=== PATIENT | female | born 1970 | race Hispanic/Latino ===

== ENCOUNTER 2017-09-27 10:06 | Observation (INO) | payer BC ==
[2017-09-27 10:37] VITALS: BMI 19.4
--- NOTE | 2017-09-27 11:54 | ED PDOC ---
Syncope/Near Syncope/Dizziness Time Seen by Provider: 09/27/17 11:00 Chief Complaint (Nursing): Syncope Chief Complaint (Provider): Syncope History Per: Patient, Family History/Exam Limitations: no limitations Onset/Duration Of Symptoms: Hrs Associated Symptoms Preceding Syncopal Episode: denies: Lightheadedness, Worse With Standing, Vertigo Additional Complaint(s): 47 y/o F with PMHx of Mitral valve prolapse presents to ED complaining of one syncope episode that happened today morning between 7-7:30 am. Patient has been on gluten-free diet for several years and lately has been on dairy-free. Patient states she was kneeling down praying in her bedroom, felt intense diffuse abdominal cramps, associated with nausea, and passed out for about 15- 20 mins. During the event she felt on her left side, hit her right side of her face, shoulder, and knee. When she regained consciousness she was oriented, feeling weak ( mainly in her upper extremities), still nauseous, and noticed she had lost the control of her bladder. Her sister, who was in a different room , saw her sitting on the floor, and conscious. Patient denies dizziness, palpitations, chest pain, SOB,diarrheas, urinary symptoms or other complains prior to the event. As per patient's sister patient was oriented, asked her for any symptoms, but patient denies any cp, palpitations, headaches, dizziness, tongue bit, o other complains. Denies h/o seizures. PMD: None at this time Past Medical History Vital Signs: Last Vital Signs Temp 98 F 09/27/17 10:37 Pulse 64 09/27/17 10:49 Resp 18 09/27/17 10:49 BP 125/77 09/27/17 10:49 Pulse Ox 100 09/27/17 10:49 - Medical History Other PMH: Mitral valve prolapse - Family History Family History: States: Unknown Family Hx - Social History Current smoker - smoking cessation education provided: No Ex-Smoker (has not smoked in the last 12 months): No Alcohol: None Drugs: Denies - Home Medications Home Medications: Ambulatory Orders Medication Instructions Recorded No Known Home Med 09/27/17 - Allergies Allergies/Adverse Reactions: Allergies Allergy/AdvReac Type Severity Reaction Status Date / Time Crustacians Allergy DIZZINESS Uncoded 09/27/17 11:00 Review of Systems ROS Statement: Except As Marked, All Systems Reviewed And Found Negative (as per HPI) Physical Exam - Reviewed Nursing Documentation Reviewed: Yes Vital Signs Reviewed: Yes - Physical Exam Appears: Positive for: Non-toxic, No Acute Distress Skin: Positive for: Normal Color, Warm, Dry Eye Exam: Positive for: EOMI, PERRL. Negative for: Conjunctival injection, Scleral icterus ENT: Positive for: Other (Noted ecchymosis in right eyebrow, upper lip) Neck: Positive for: Normal, Supple Cardiovascular/Chest: Positive for: Regular Rate, Rhythm, Bradycardia. Negative for: Chest Non Tender, Edema, Gallop, Murmur, Tachycardia, Irregularly Irregular Respiratory: Positive for: Normal Breath Sounds. Negative for: Decreased Breath Sounds, Accessory Muscle Use, Crackles, Rales, Rhonchi, Wheezing, Respiratory Distress Gastrointestinal/Abdominal: Positive for: Bowel Sounds (present), Soft. Negative for: Tenderness, Distended, Guarding, Rebound Back: Positive for: Normal Inspection. Negative for: L CVA Tenderness, R CVA Tenderness Neurologic/Psych: Positive for: Alert, Oriented - Laboratory Results Result Diagrams: 09/27/17 12:35 09/27/17 12:35 - ECG O2 Sat by Pulse Oximetry: 100 Medical Decision Making Medical Decision Making: Syncope -EKG: NSR -CBC, CMP, PT/PTT, LDH, CPK -UA -Head CT scan w/o contrast -Maxillofacial CT scan w/o contrast -Orthostatic BP at bedside negative. Lying : 100/60, Sittin/[address] Odom Re-evaluation -CBC, CMP, coag panel WNL UA unremarkable -Head CT reported as no evidence of intracraneal bleeding -Maxillofacial Ct scan reported as no evidence of fracture Discussed with Dr. Odom, patient will be admitted under Dr. Villafana service to r/ o seizure Noted that Dr. Bertrand was patient's PCP in the past, but patient does not want to be admitted under Dr. Bertrand's service, but she agrees with the admission. Spoke with , and agreed with admission under his service. Dr. Villafana asked to call Cardiology ( Dr. Tapia), and Neurology ( ) for evaluation. Dr. Tapia was consulted, and recommended Echo eval. Dr. Quarles was called, but asked to call Dr. Mendoza, who is electrician substation. Dr. Mendoza was consulted, and recommended CTA head and neck. Disposition - Clinical Impression Clinical Impression: Syncope - Patient ED Disposition Is Patient to be Admitted: Yes Discussed With : Kaylynn Odom - Disposition Disposition Time: 17:11 Condition: FAIR
[2017-09-27 12:42] LABS: BASO % 0.1 % (0.0-2.0); EOS % 0.1 % (0.0-4.0); HEMOGLOBIN 13.6 g/dL (12.0-16.0); LYMPH # 0.5 K/uL (1.0-4.3); LYMPH % 7.4 % (20.0-40.0); MEAN CELL VOLUME 94.9 fl (81.0-99.0); MEAN CORPUSCULAR HEMOGLOBIN 32.3 pg (27.0-31.0); MEAN CORPUSCULAR HGB CONC 34.1 g/dL (33.0-37.0); MEAN PLATELET VOLUME 8.8 fl (7.2-11.7); MONO # 0.4 K/uL (0.0-0.8); NEUT # 6.2 K/uL (1.8-7.0); NEUT % 87.4 % (50.0-75.0); PLATELET COUNT 141 K/uL (130-400); RBC 4.22 Mil/uL (3.80-5.20); WHITE BLOOD COUNT 7.1 K/uL (4.8-10.8)
[2017-09-27 12:47] LABS: URINE BILIRUBIN NEGATIVE (NEGATIVE); URINE BLOOD NEGATIVE (NEGATIVE); URINE CALCIUM OXALATE CRYSTALS OCC /hpf (<OCC); URINE CLARITY SLIGHTY-CLOUDY (Clear); URINE COLOR YELLOW (YELLOW); URINE GLUCOSE (UA) NEG (Normal); URINE LEUKOCYTE ESTERASE NEG Leu/uL (Negative); URINE PROTEIN 30 mg/dL (NEGATIVE); URINE UROBILINOGEN 0.2-1.0 mg/dL (0.2-1.0)
[2017-09-27 12:51] LABS: ALB/GLOB RATIO 1.5 (1.0-2.1); ALBUMIN 4.2 g/dL (3.5-5.0); ALT/SGPT 25 U/L (9-52); AST/SGOT 25 U/L (14-36); BLOOD UREA NITROGEN 14 mg/dl (7-17); CALCIUM 9.5 mg/dL (8.4-10.2); GFR AFRICAN-AMERICAN > 60; GFR NON-AFRICAN AMERICAN > 60
[2017-09-27 13:08] LABS: INR 1.1 (0.9-1.2); PARTIAL THROMBOPLASTIN TIME 28.3 Seconds (25.6-37.1); PROTHROMBIN TIME 11.9 Seconds (9.8-13.1)
[2017-09-27 13:16] LABS: LYMPHOCYTE 9 % (20-50); MONOCYTE 6 % (0-10); NEUTROPHIL 85 % (42-75); PLATELET ESTIMATE SLIGHTLY DECREASED (NORMAL); TOTAL CELLS COUNTED 100
[2017-09-27 13:17] LABS: ANISOCYTOSIS SLIGHT; LARGE PLATELETS PRESENT; OVALOCYTES MODERATE; TEARDROP CELLS SLIGHT
--- NOTE | 2017-09-27 13:17 | CT ---
PROCEDURE: CT HEAD WITHOUT CONTRAST. HISTORY: Syncope with facial trauma COMPARISON: None available. TECHNIQUE: Axial computed tomography images were obtained through the head/brain without intravenous contrast. Coronal and sagittal reconstructed images. Radiation dose: Total exam DLP = 853.69 mGy-cm. This CT exam was performed using one or more of the following dose reduction techniques: Automated exposure control, adjustment of the mA and/or kV according to patient size, and/or use of iterative reconstruction technique. FINDINGS: HEMORRHAGE: No intracranial hemorrhage. BRAIN: No mass effect or edema. No atrophy or chronic microvascular ischemic changes. VENTRICLES: Unremarkable. No hydrocephalus. CALVARIUM: Unremarkable. PARANASAL SINUSES: Unremarkable as visualized. No significant inflammatory changes. MASTOID AIR CELLS: Unremarkable as visualized. No inflammatory changes. OTHER FINDINGS: None. IMPRESSION: No acute intracranial abnormalities. No significant findings to account for the clinical presentation.
--- NOTE | 2017-09-27 13:21 | CT ---
PROCEDURE: CT MAXILLOFACIAL BONES WITHOUT CONTRAST HISTORY: s/p syncope and fall COMPARISON: None TECHNIQUE: Contiguous axial CT images of the maxillofacial bones were obtained. Coronal and sagittal reformats were generated. Radiation dose: Total exam DLP = 740.27 mGy-cm. This CT exam was performed using one or more of the following dose reduction techniques: Automated exposure control, adjustment of the mA and/or kV according to patient size, and/or use of iterative reconstruction technique. FINDINGS: NASAL BONES: No evidence of nasal bone fracture. There is soft tissue swelling about the nose. ORBITS: Unremarkable. PARANASAL SINUSES/ MASTOIDS: Clear. MAXILLA: Unremarkable. MANDIBLE/ TEMPOROMANDIBULAR JOINTS: Unremarkable. SKULL BASE: Unremarkable. TEMPORAL BONES: Middle ears and mastoid grossly unremarkable. OTHER FINDINGS: None. IMPRESSION: Nasal soft tissue swelling without nasal bone fracture or other pathologic process.
--- NOTE | 2017-09-28 11:10 | CARD ---
APPROVED REPORT EKG Measurement Heart [id number] <Conclusion> Sinus bradycardia with sinus arrhythmia Possible Left atrial enlargement Borderline ECG
--- NOTE | 2017-09-28 11:28 | CARD ---
APPROVED REPORT EXAM: Two-dimensional and M-mode echocardiogram with Doppler and color Doppler. Other Information Quality : GoodRhythm : INDICATION Syncope 2D DIMENSIONS IVSd0.65 (0.7-1.1cm)LVDd4.56 (3.9-5.9cm) LVOT Diameter1.76 (1.8-2.4cm)PWd0.69 (0.7-1.1cm) IVSs0.69 (0.8-1.2cm)LVDs3.80 (2.5-4.0cm) FS (%) 16.6 %PWs0.77 (0.8-1.2cm) M-Mode DIMENSIONS Left Atrium (MM)3.54 (2.5-4.0cm)IVSd0.69 (0.7-1.1cm) Aortic Root3.23 (2.2-3.7cm)LVDd4.54 (4.0-5.6cm) Aortic Cusp Exc.1.89 (1.5-2.0cm)PWd0.66 (0.7-1.1cm) IVSs0.90 cmFS (%) 38 % LVDs2.80 (2.0-3.8cm)PWs0.87 cm Mitral Valve MV E Dldtlxhu02.0cm/sMV DECEL [id number] A Wtnswnwe77.7cm/s MV TDC97egL/A ratio2.5MVA (PHT)2.95cm2 TDI Lateral E' Peak V12.14cm/sMedial E' Peak V14.50cm/sE/Lateral E'7.1 E/Medial E'5.9 Pulmonary Valve PV Peak Rgxkpxbt91.5cm/s Tricuspid Valve TR Peak Kjfvfril527kv/sRAP TUSNJQCY22doSlVK Peak Gr.21mmHg HYYZ22yoMg LEFT VENTRICLE The left ventricle is normal size. The left ventricular function is normal. The left ventricular ejection fraction is within the normal range. The Ejection Fraction is 55-60%. There is normal LV segmental wall motion. The left ventricular diastolic function is normal. RIGHT VENTRICLE The right ventricle is normal size. The right ventricular systolic function is normal. ATRIA The left atrium size is normal. The right atrium size is normal. AORTIC VALVE The aortic valve is normal in structure. No aortic regurgitation is present. There is no aortic valvular stenosis. MITRAL VALVE The mitral valve is normal in structure. There is no mitral valve stenosis. There is no mitral valve regurgitation noted. TRICUSPID VALVE The tricuspid valve is normal in structure. There is no tricuspid valve regurgitation noted. PULMONIC VALVE The pulmonary valve is normal in structure. There is no pulmonic valvular regurgitation. GREAT VESSELS The aortic root is normal in size. The IVC is normal in size and collapses >50% with inspiration. PERICARDIAL EFFUSION The pericardium appears normal. <Conclusion> The left ventricle is normal size. The left ventricular function is normal. The left ventricular ejection fraction is within the normal range. The Ejection Fraction is 55-60%.
--- NOTE | 2017-09-28 12:13 | CP.PCM.HP ---
History of Present Illness - History of Present Illness History of Present Illness: Patient seen and examined at bedside with Dr. Villafana 47 yr old F presented to ED with complaint of syncopal episode which occurred in her home. PMHx includes Mitral Valve Prolapse. The episode was unwitnessed but patients' sister was in the home at the time. Patient reports she was in her bedroom when she suddenly felt severe abdominal cramps and passed out right after, hit the floor on her right face, shoulder and knee . Associated symptoms were nausea and lightheadedness. Reports being unconscious for 15 min. Positive for urinary incontinence. Negative for tongue biting, confusion, vomiting, headache or visual changes. Patient reports her sister found her sitting on the floor and conscious. Denies history of seizures, fevers/chills/SOB/weakness prior to the episode. PMD: none PMHx: Mitral Valve Prolapse SurgHx: bilateral bunionectomy, left ovarian cyst removed FMHx: noncontributory SocHx: denies tobacco/Etoh or drugs Medications: none Allergies: NKDA ED course: vital signs stable -EKG: Sinus bradycardia with sinus arrhythmia at 58 bpm, possible left atrial enlargement -CT head: No acute intracranial hemorrhage or abnormalities -Maxillofacial CT: Nasal soft tissue swelling without nasal bone fracture or other pathologic process -CBC, CMP, coags, and urinalysis within normal limits -Neurology and Cardiology consult placed Present on Admission - Present on Admission Any Indicators Present on Admission: No History of DVT/PE: No History of Uncontrolled Diabetes: No Urinary Catheter: No Decubitus Ulcer Present: No History Surgical Site Infection Following: None Review of Systems - Constitutional Constitutional: absent: Chills, Weakness - EENT Eyes: absent: Change in Vision Ears: absent: Dizziness Nose/Mouth/Throat: absent: Sore Throat - Cardiovascular Cardiovascular: Syncope. absent: Chest Pain, Dyspnea, Palpitations - Respiratory Respiratory: absent: Cough, Dyspnea, Hemoptysis - Gastrointestinal Gastrointestinal: Nausea. absent: Diarrhea, Vomiting - Genitourinary Genitourinary: absent: Difficulty Urinating, Dysuria - Musculoskeletal Musculoskeletal: absent: Arthralgias - Integumentary Integumentary: absent: Wounds - Neurological Neurological: absent: Focal Weakness, Loss of Vision - Psychiatric Psychiatric: absent: Anxiety - Endocrine Endocrine: absent: Polydipsia, Polyphagia, Polyuria - Hematologic/Lymphatic Hematologic: absent: Easy Bleeding, Easy Bruising Past Patient History - Past Social History Smoking Status: Never Smoked - CARDIAC Hx Cardiac Disorders: Yes - MUSCULOSKELETAL/RHEUMATOLOGICAL Hx Falls: Yes - PSYCHIATRIC Hx Substance Use: No - SURGICAL HISTORY Other/Comment: Feet surgery. Cyst removed from ovary - ANESTHESIA Hx Anesthesia: Yes Hx Anesthesia Reactions: No Meds Allergies/Adverse Reactions: Allergies Allergy/AdvReac Type Severity Reaction Status Date / Time Crustacians Allergy DIZZINESS Uncoded 09/27/17 11:00 Physical Exam - Constitutional Appears: No Acute Distress - Head Exam Head Exam: absent: ATRAUMATIC (bruise and minimal swelling of right lateral upper/lower eyelid, bruise and minimal swelling of right upper lip) - Eye Exam Eye Exam: EOMI, PERRL - ENT Exam ENT Exam: Mucous Membranes Moist - Neck Exam Neck exam: Positive for: Full Rom. Negative for: Lymphadenopathy - Respiratory Exam Respiratory Exam: Clear to Auscultation Bilateral, NORMAL BREATHING PATTERN - Cardiovascular Exam Cardiovascular Exam: REGULAR RHYTHM, +S1, +S2 - GI/Abdominal Exam GI & Abdominal Exam: Normal Bowel Sounds, Soft. absent: Tenderness - Extremities Exam Extremities exam: Negative for: pedal edema - Neurological Exam Neurological exam: Alert, CN II-XII Intact (grossly intact), Oriented x3 - Psychiatric Exam Psychiatric exam: Normal Affect, Normal Mood - Skin Skin Exam: Dry, Normal Color, Warm Results - Vital Signs Recent Vital Signs: Last Vital Signs Temp 98.3 F 09/28/17 07:57 Pulse 51 L 09/28/17 09:00 Resp 18 09/28/17 07:57 BP 104/67 09/28/17 07:57 Pulse Ox 98 09/28/17 07:57 - Labs Result Diagrams: 09/27/17 12:35 09/27/17 12:35 Labs: Laboratory Results - last 24 hr 09/27/17 09/27/17 09/27/17 10:56 12:30 12:30 WBC RBC Hgb Hct MCV MCH MCHC RDW Plt Count MPV Neut % (Auto) Lymph % (Auto) Burt % (Auto) Eos % (Auto) Baso % (Auto) Neut # (Auto) Lymph # (Auto) Burt # (Auto) Eos # (Auto) Baso # (Auto) Neutrophils % (Manual) Lymphocytes % (Manual) Monocytes % (Manual) Platelet Estimate Large Platelets Anisocytosis (manual) Tear Drop Cells Ovalocytes PT 11.9 INR 1.1 APTT 28.3 Sodium Potassium Chloride Carbon Dioxide Anion Gap BUN Creatinine Est GFR ( Amer) Est GFR (Non-Af Amer) POC Glucose (mg/dL) 132 H Random Glucose Calcium Total Bilirubin AST ALT Alkaline Phosphatase Lactate Dehydrogenase 373 Total Creatine Kinase 59 Total Protein Albumin Globulin Albumin/Globulin Ratio Urine Color Urine Clarity Urine pH Ur Specific Nordman Urine Protein Urine Glucose (UA) Urine Ketones Urine Blood Urine Nitrate Urine Bilirubin Urine Urobilinogen Ur Leukocyte Esterase Urine RBC (Auto) Urine Microscopic WBC Calcium Oxalate Crystal 09/27/17 09/27/17 09/27/17 12:35 12:35 12:35 WBC 7.1 RBC 4.22 Hgb 13.6 Hct 40.0 MCV 94.9 MCH 32.3 H MCHC 34.1 RDW 13.0 Plt Count 141 MPV 8.8 Neut % (Auto) 87.4 H Lymph % (Auto) 7.4 L Burt % (Auto) 5.0 Eos % (Auto) 0.1 Baso % (Auto) 0.1 Neut # (Auto) 6.2 Lymph # (Auto) 0.5 L Burt # (Auto) 0.4 Eos # (Auto) 0.0 Baso # (Auto) 0.0 Neutrophils % (Manual) 85 H Lymphocytes % (Manual) 9 L Monocytes % (Manual) 6 Platelet Estimate Slightly decreased L Large Platelets Present Anisocytosis (manual) Slight Tear Drop Cells Slight Ovalocytes Moderate PT INR APTT Sodium 140 Potassium 3.9 Chloride 104 Carbon Dioxide 28 Anion Gap 12 BUN 14 Creatinine 0.7 Est GFR ( Amer) > 60 Est GFR (Non-Af Amer) > 60 POC Glucose (mg/dL) Random Glucose 110 H Calcium 9.5 Total Bilirubin 1.0 AST 25 ALT 25 Alkaline Phosphatase 58 Lactate Dehydrogenase Total Creatine Kinase Total Protein 7.0 Albumin 4.2 Globulin 2.8 Albumin/Globulin Ratio 1.5 Urine Color Yellow Urine Clarity Slighty-cloudy Urine pH 6.0 Ur Specific Nordman 1.024 Urine Protein 30 Urine Glucose (UA) Neg Urine Ketones 20 Urine Blood Negative Urine Nitrate Negative Urine Bilirubin Negative Urine Urobilinogen 0.2-1.0 Ur Leukocyte Esterase Neg Urine RBC (Auto) 6 H Urine Microscopic WBC 3 Calcium Oxalate Crystal Occ H Assessment & Plan - Assessment and Plan (Free Text) Assessment: 47 yr old F admitted for syncopal episode with PMHx including mitral valve prolapse Plan: -admit to telemetry -cardiac monitoring -seizure precautions -f/u HbA1c, TSH, vit B12 -Cardiology on consult, will follow recommendations -Neurology on consult, will follow recommendations -regular diet - Date & Time Date: 09/28/17 Time: 07:30
--- NOTE | 2017-09-28 14:44 | CP.PCM.CON ---
History of Present Illness - History of Present Illness History of Present Illness: Mrs. Spencer is a 47-year-old woman with a past medical history of mitral valve prolapse, who had a syncopal episode yesterday after the sudden onset of severe abdominal cramping. She was noted to have urinary incontinence. There was no fecal incontinence. There was no tongue biting, or other injury noted. She has not had any recurrent syncopal episodes since. CT scan of the head was normal. She did not want to have CTA and preferred to leave since she was feeling well. Review of Systems - Review of Systems All systems: reviewed and no additional remarkable complaints except Past Patient History - Past Social History Smoking Status: Never Smoked - CARDIAC Hx Cardiac Disorders: Yes - MUSCULOSKELETAL/RHEUMATOLOGICAL Hx Falls: Yes - PSYCHIATRIC Hx Substance Use: No - SURGICAL HISTORY Other/Comment: Feet surgery. Cyst removed from ovary - ANESTHESIA Hx Anesthesia: Yes Hx Anesthesia Reactions: No Meds Allergies/Adverse Reactions: Allergies Allergy/AdvReac Type Severity Reaction Status Date / Time Crustacians Allergy DIZZINESS Uncoded 09/27/17 11:00 Physical Exam - Constitutional Appears: Well - Eye Exam Eye Exam: EOMI, Normal appearance, PERRL - Neurological Exam Neurological exam: Alert, CN II-XII Intact, Normal Gait, Oriented x3, Reflexes Normal - Psychiatric Exam Psychiatric exam: Normal Affect, Normal Mood Results - Vital Signs Recent Vital Signs: Last Vital Signs Temp 98 F 09/28/17 12:26 Pulse 64 09/28/17 12:26 Resp 18 09/28/17 12:26 BP 101/60 09/28/17 12:26 Pulse Ox 98 09/28/17 12:26 - Labs Result Diagrams: 09/27/17 12:35 09/27/17 12:35 Labs: Laboratory Results - last 24 hr 09/27/17 10:56 POC Glucose (mg/dL) 132 H Assessment & Plan (1) Syncope Assessment and Plan: Likely vaso-vagal or neurocardiogenic syncope. Seizure is less likely, but possible. I would like the patient to have an MRI/MRA of the brain as an outpatient as well as an EEG and follow up with me in the office in 2 weeks. Thank you. Status: Acute Priority: Medium
--- NOTE | 2017-09-29 06:22 | CP.PCM.CON ---
History of Present Illness - History of Present Illness History of Present Illness: 47 year old female with hx of MVP presenting with an episode of syncope with urinary incontinence after a sever bout of cramping. Review of Systems - Review of Systems Systems not reviewed;Unavailable: Acuity of Condition - Constitutional Constitutional: As Per HPI - EENT Eyes: As Per HPI Ears: As Per HPI Nose/Mouth/Throat: As Per HPI - Breasts Breasts: As Per HPI - Cardiovascular Cardiovascular: As Per HPI - Respiratory Respiratory: As Per HPI - Gastrointestinal Gastrointestinal: As Per HPI - Genitourinary Genitourinary: As Per HPI - Reproductive: Female Reproductive:Female: As Per HPI - Menstruation Menstruation: As Per HPI - Musculoskeletal Musculoskeletal: As Per HPI - Integumentary Integumentary: As Per HPI - Neurological Neurological: As Per HPI - Psychiatric Psychiatric: As Per HPI - Endocrine Endocrine: As Per HPI - Hematologic/Lymphatic Hematologic: As Per HPI Past Patient History - Past Social History Smoking Status: Never Smoked - CARDIAC Hx Cardiac Disorders: Yes - MUSCULOSKELETAL/RHEUMATOLOGICAL Hx Falls: Yes - PSYCHIATRIC Hx Substance Use: No - SURGICAL HISTORY Other/Comment: Feet surgery. Cyst removed from ovary - ANESTHESIA Hx Anesthesia: Yes Hx Anesthesia Reactions: No Meds Allergies/Adverse Reactions: Allergies Allergy/AdvReac Type Severity Reaction Status Date / Time Crustacians Allergy DIZZINESS Uncoded 09/27/17 11:00 Physical Exam - Constitutional Appears: Well - Head Exam Head Exam: ATRAUMATIC, NORMAL INSPECTION, NORMOCEPHALIC - Eye Exam Eye Exam: EOMI, Normal appearance, PERRL Pupil Exam: NORMAL ACCOMODATION, PERRL - ENT Exam ENT Exam: Mucous Membranes Moist, Normal Exam - Neck Exam Neck exam: Positive for: Normal Inspection - Respiratory Exam Respiratory Exam: Clear to Auscultation Bilateral, NORMAL BREATHING PATTERN - Cardiovascular Exam Cardiovascular Exam: REGULAR RHYTHM, +S1, +S2, Systolic Murmur - GI/Abdominal Exam GI & Abdominal Exam: Normal Bowel Sounds, Soft. absent: Tenderness - Extremities Exam Extremities exam: Positive for: normal inspection - Back Exam Back exam: NORMAL INSPECTION - Neurological Exam Neurological exam: Alert, CN II-XII Intact, Normal Gait, Oriented x3, Reflexes Normal - Psychiatric Exam Psychiatric exam: Normal Affect, Normal Mood - Skin Skin Exam: Dry, Intact, Normal Color, Warm Results - Vital Signs Recent Vital Signs: Last Vital Signs Temp 97.8 F 09/29/17 04:51 Pulse 48 L 09/29/17 04:51 Resp 18 09/29/17 04:51 BP 101/61 09/29/17 04:51 Pulse Ox 98 09/29/17 04:51 - Labs Result Diagrams: 09/27/17 12:35 09/27/17 12:35 Labs: Laboratory Results - last 24 hr 09/28/17 09/28/17 09/28/17 14:03 14:03 16:40 Hemoglobin A1c 5.4 Vitamin B12 758 TSH 3rd Generation 2.64 Assessment & Plan (1) Syncope Assessment and Plan: etiology most likely vasovagal orthostatics telemetry Status: Acute Priority: Medium (2) Mitral valve prolapse Assessment and Plan: echo Status: Acute
--- NOTE | 2017-09-29 07:26 | CP.PCM.DIS ---
Provider - Provider Date of Admission: 09/27/17 15:11 Attending physician: Otis Villafana MD Consults: Dr. Mendoza, Dr. Tapia Time Spent in preparation of Discharge (in minutes): 30 Diagnosis - Discharge Diagnosis (1) Syncope Status: Acute Priority: Medium (2) Mitral valve prolapse Status: Chronic Priority: Low Hospital Course - Lab Results Lab Results: Most Recent Lab Values WBC 7.1 K/uL (4.8-10.8) 09/27/17 12:35 RBC 4.22 Mil/uL (3.80-5.20) 09/27/17 12:35 Hgb 13.6 g/dL (12.0-16.0) 09/27/17 12:35 Hct 40.0 % (34.0-47.0) 09/27/17 12:35 MCV 94.9 fl (81.0-99.0) 09/27/17 12:35 MCH 32.3 pg (27.0-31.0) H 09/27/17 12:35 MCHC 34.1 g/dL (33.0-37.0) 09/27/17 12:35 RDW 13.0 % (11.5-14.5) 09/27/17 12:35 Plt Count 141 K/uL (130-400) 09/27/17 12:35 MPV 8.8 fl (7.2-11.7) 09/27/17 12:35 Neut % (Auto) 87.4 % (50.0-75.0) H 09/27/17 12:35 Lymph % (Auto) 7.4 % (20.0-40.0) L 09/27/17 12:35 [place] % (Auto) 5.0 % (0.0-10.0) 09/27/17 12:35 Eos % (Auto) 0.1 % (0.0-4.0) 09/27/17 12:35 Baso % (Auto) 0.1 % (0.0-2.0) 09/27/17 12:35 Neut # (Auto) 6.2 K/uL (1.8-7.0) 09/27/17 12:35 Lymph # (Auto) 0.5 K/uL (1.0-4.3) L 09/27/17 12:35 [place] # (Auto) 0.4 K/uL (0.0-0.8) 09/27/17 12:35 Eos # (Auto) 0.0 K/uL (0.0-0.7) 09/27/17 12:35 Baso # (Auto) 0.0 K/uL (0.0-0.2) 09/27/17 12:35 Neutrophils % (Manual) 85 % (42-75) H 09/27/17 12:35 Lymphocytes % (Manual) 9 % (20-50) L 09/27/17 12:35 Monocytes % (Manual) 6 % (0-10) 09/27/17 12:35 Platelet Estimate Slightly decreased (NORMAL) L 09/27/17 12:35 Large Platelets Present 09/27/17 12:35 Anisocytosis (manual) Slight 09/27/17 12:35 Tear Drop Cells Slight 09/27/17 12:35 Ovalocytes Moderate 09/27/17 12:35 PT 11.9 Seconds (9.8-13.1) 09/27/17 12:30 INR 1.1 (0.9-1.2) 09/27/17 12:30 APTT 28.3 Seconds (25.6-37.1) 09/27/17 12:30 Sodium 140 mmol/l (132-148) 09/27/17 12:35 Potassium 3.9 MMOL/L (3.6-5.0) 09/27/17 12:35 Chloride 104 mmol/L (98-107) 09/27/17 12:35 Carbon Dioxide 28 mmol/L (22-30) 09/27/17 12:35 Anion Gap 12 (10-20) 09/27/17 12:35 BUN 14 mg/dl (7-17) 09/27/17 12:35 Creatinine 0.7 mg/dl (0.7-1.2) 09/27/17 12:35 Est GFR ( Amer) > 60 09/27/17 12:35 Est GFR (Non-Af Amer) > 60 09/27/17 12:35 POC Glucose (mg/dL) 132 mg/dL (65-110) H 09/27/17 10:56 Random Glucose 110 mg/dL (65-105) H 09/27/17 12:35 Hemoglobin A1c 5.4 % (4.2-6.5) 09/28/17 14:03 Calcium 9.5 mg/dL (8.4-10.2) 09/27/17 12:35 Total Bilirubin 1.0 mg/dl (0.2-1.3) 09/27/17 12:35 AST 25 U/L (14-36) 09/27/17 12:35 ALT 25 U/L (9-52) 09/27/17 12:35 Alkaline Phosphatase 58 U/L (38-126) 09/27/17 12:35 Lactate Dehydrogenase 373 U/L (313-618) 09/27/17 12:30 Total Creatine Kinase 59 U/L (30-135) 09/27/17 12:30 Total Protein 7.0 G/DL (6.3-8.2) 09/27/17 12:35 Albumin 4.2 g/dL (3.5-5.0) 09/27/17 12:35 Globulin 2.8 gm/dL (2.2-3.9) 09/27/17 12:35 Albumin/Globulin Ratio 1.5 (1.0-2.1) 09/27/17 12:35 Vitamin B12 758 pg/mL (239-931) 09/28/17 14:03 TSH 3rd Generation 2.64 mIU/ML (0.46-4.68) 09/28/17 16:40 Urine Color Yellow (YELLOW) 09/27/17 12:35 Urine Clarity Slighty-cloudy (Clear) 09/27/17 12:35 Urine pH 6.0 (5.0-8.0) 09/27/17 12:35 Ur Specific [place] 1.024 (1.003-1.030) 09/27/17 12:35 Urine Protein 30 mg/dL (NEGATIVE) 09/27/17 12:35 Urine Glucose (UA) Neg mg/dL (Normal) 09/27/17 12:35 Urine Ketones 20 mg/dL (NEGATIVE) 09/27/17 12:35 Urine Blood Negative (NEGATIVE) 09/27/17 12:35 Urine Nitrate Negative (NEGATIVE) 09/27/17 12:35 Urine Bilirubin Negative (NEGATIVE) 09/27/17 12:35 Urine Urobilinogen 0.2-1.0 mg/dL (0.2-1.0) 09/27/17 12:35 Ur Leukocyte Esterase Neg [place]/uL (Negative) 09/27/17 12:35 Urine RBC (Auto) 6 /hpf (0-3) H 09/27/17 12:35 Urine Microscopic WBC 3 /hpf (0-5) 09/27/17 12:35 Calcium Oxalate Crystal Occ /hpf (<OCC) H 09/27/17 12:35 - Hospital Course Hospital Course: 47 yr old F admitted for syncopal episode with PMHx including mitral valve prolapse. Patient was evaluated by neurology and cardiology, Head CT, echocardiogram and maxillofacial CT were within normal limits. Patient was discharged stable with instructions to follow up with neurology within 1 week, rx given for outpatient MRI/MRA brain and EEG, follow up with primary care physician and cardiology within 1 week for holter monitor. - Date & Time of H&P Date of H&P: 09/28/17 Time of H&P: 07:30 Discharge Exam - Head Exam Head Exam: ATRAUMATIC, NORMAL INSPECTION, NORMOCEPHALIC - Eye Exam Eye Exam: Normal appearance - ENT Exam ENT Exam: Mucous Membranes Moist - Respiratory Exam Respiratory Exam: NORMAL BREATHING PATTERN - GI/Abdominal Exam GI & Abdominal Exam: Normal Bowel Sounds - Neurological Exam Neurological exam: Alert, CN II-XII Intact, Oriented x3 - Psychiatric Exam Psychiatric exam: Normal Affect, Normal Mood - Skin Skin Exam: Dry, Normal Color Discharge Plan - Follow Up Plan Condition: FAIR Disposition: HOME/ ROUTINE Instructions: Syncope (Fainting) (DC), Vasovagal Response (DC) Additional Instructions: -Follow up with a primary care doctor within 1 week -Obtain outpatient imaging as instructed on prescription, Follow up with neurology within 1 week -Return to ED if any concerns or if change in mental status, seizure activity, visual changes, worst headache of your life, one sided numbness/tingling, weakness. Referrals: Otis Villafana MD [Staff Provider] - Donte Mendoza MD [Medical Doctor] - Shaheed Tapia MD [Staff Provider] -
[2017-09-29 08:24] VITALS: BP 98/63; PULSE 87; RESP 20; TEMP 97.7; O2SAT 100
== END 2017-09-29 09:53 | disposition home or self-care (01) ==
LOC: H.ER 10:06 → H.ERHOLD 15:11 → INTOOBSV 15:11 → H.TEL 16:47
PROVIDERS: ADMIT Internal Medicine; ATTEND Internal Medicine
DX: R55 Syncope and collapse (principal); I34.1 Nonrheumatic mitral (valve) prolapse; R32 Unspecified urinary incontinence
CPT/HCPCS: 36415; 70450; 70486; 80053; 81003; 81025; 82550; 82607; 82948; 83036; 83615; 84443; 85025; 85610; 85730; 93005; 93306; 99285; G0378